=== PATIENT | female | born 1960 | race Caucasian/White ===

== ENCOUNTER 2016-05-21 18:30 | Emergency (ER) | payer OTHER, MEDICAID ==
[~2016-05-21] VITALS: Ht 175.3 cm; Wt 83.9 kg
[2016-05-21] MEDS ORDERED: SODIUM CHLORIDE 0.9% 1,000 ML IVB ONE (18:55)
[2016-05-21] MEDS ORDERED: HYDROcodone-ACET 10/325MG TAB PO ONE (19:15)
[2016-05-21 19:33] LABS: Basophils # (auto) 0 uL; Basophils % (auto) 0.4 % (0.0-2.0); DEFINITIVE VIEW TRANSMISSION; Eosinophils # (auto) 0.1 uL; Eosinophils % (auto) 0.8 % (0.0-7.0); Hematocrit 35.9 % (36.0-46.0); Hemoglobin 11.5 g/dL (12.2-16.2); Lymphocytes # (auto) 2.3 uL; Lymphocytes % (auto) 29.7 % (10.0-50.0); Mean Corpuscular Hemoglobin 26.8 pg (28.0-32.0); Mean Corpuscular Hgb Conc. 31.9 g/dL (32.0-36.0); Mean Corpuscular Volume 84.1 fL (80.0-100.0); Mean Platelet Volume 7.7 fL (7.4-10.4); Monocytes # (auto) 0.4 uL; Monocytes % (auto) 5.5 % (0.0-12.0); Neutrophils # (auto) 4.8 uL; Neutrophils % (auto) 63.6 % (37.0-80.0); Platelet Count (auto) 395 10^3/uL (140-450); White Blood Cell 7.6 10^3/uL (4.4-10.8)
[2016-05-21 19:39] LABS: Red Cell Distribution Width 20.6 % (11.6-16.0)
[2016-05-21 19:49] LABS: INR 0.99 (0.9-1.15); Partial Thromboplastin Time 23.3 sec (22.64-33.71); Prothrombin Time 10.2 sec (9.37-12.3)
[2016-05-21 20:00] LABS: Anisocytosis Slight; Hypochromia Slight; Platelet Estimate Adequate
[2016-05-21 20:08] LABS: Albumin 3.4 g/dL (3.4-5.0); Alkaline Phosphatase 85 U/L (45-117); Anion Gap 7 (5-15); Aspartate Aminotransferase 19 U/L (15-37); BUN/Creatinine Ratio 14.1; Bilirubin, Total 0.2 mg/dL (0.2-1.0); Blood Urea Nitrogen 11 mg/dL (7-18); Calcium 8.4 mg/dL (8.5-10.1); Carbon Dioxide 25 mmol/L (21-32); Chloride 109 mmol/L (98-107); GFR African American 99 mL/min; GFR Non-African American 82 mL/min; Glucose 82 mg/dL (74-106); Magnesium 2.2 mg/dL (1.6-2.6); Potassium 4.4 mmol/L (3.5-5.1); Sodium 141 mmol/L (136-145)
[2016-05-21 20:13] LABS: B-Type Natriuretic Peptide 101.34 pg/mL (0-100); Temperature: 22.4 C (20.0-25.0)
[2016-05-21] MEDS ORDERED: IOHEXOL 350 MG/ML 100ML IJ ONE (21:15)
[2016-05-21 23:09] VITALS: BP 126/80
== END 2016-05-21 23:29 | disposition home or self-care (01) ==
LOC: EDAGE 18:30 → ER 18:37
DX: S93.401A Sprain of unspecified ligament of right ankle, initial encounter (principal); R41.82 Altered mental status, unspecified; I10 Essential (primary) hypertension; E03.9 Hypothyroidism, unspecified; R55 Syncope and collapse; R06.02 Shortness of breath; R51 Headache; X58.XXXA Exposure to other specified factors, initial encounter; Y93.89 Activity, other specified; Y99.8 Other external cause status; Y92.89 Other specified places as the place of occurrence of the external cause
CPT/HCPCS: 36415; 71010; 71275; 73610; 80053; 82962; 83735; 83880; 84484; 85025; 85379; 85610; 85730; 93005; 94761; 96360; 99285; J7030; Q9967